=== PATIENT | male | born 1930 | race Caucasian/White ===

== ENCOUNTER 2020-05-13 10:27 | Inpatient (IN) | payer MEDICARE, OTHER ==
[2020-05-13] MEDS ORDERED: methylPREDNISolone Sod Succ/PF 125 MG/2 ML VIAL ONE (10:43)
[2020-05-13] MEDS ORDERED: Cefepime 2 GM VIAL ONE (11:05)
[2020-05-13] MEDS ORDERED: Vancomycin 1 GM/200 ML BAG ONE (11:05)
[2020-05-13 11:13] LABS: Analyzer IN Cardio ER; Base Excess (BEa) -1.2 mEq/L (-2.0 to +3.0); CO2 Tension 32.6 mmHg (35.0-45.0); Calcium, Ionized (arterial) 1.22 mmol/L (1.12-1.30); Carboxyhemoglobin (COHb) 0.3 gm% (0.0-3.0); Hemoglobin (Hb) 12.9 g/dL (14.0-18.0); O2 Tension (PaO2), arterial 96.5 mmHg (> 60.0); Potassium - ABG Lab 3.88 mmol/L (3.70-5.30); pH, Arterial 7.45 (7.35-7.45)
[2020-05-13 11:16] LABS: #Lymphocytes 1.3 thou/uL (1.20-3.40); #Monocytes 1.4 thou/uL (0.11-0.59); #Neutrophils 15.8 thou/uL (1.40-6.50); %Basophils 0.1 % (0.0-1.0); %Eosinophils 0.2 % (0.0-10.0); %Lymphocytes 6.7 % (21.0-51.0); %Monocytes 7.4 % (0.0-10.0); %Neutrophils 85.5 % (42.0-75.0); Hemoglobin 13.6 g/dL (14.0-18.0); Mean Corpuscular HGB CONC 33.6 g/dL (32.0-36.0); Mean Corpuscular Hemoglobin 32.4 pg (27.0-31.0); Mean Corpuscular Volume 96.2 fL (78.0-98.0); Mean Platelet Volume 9.6 fL (7.4-10.4); Platelet Count 134 thou/uL (130-400); RBC Distribution Width 11.9 % (11.5-14.5); White Blood Cell (WBC) Count 18.5 thou/uL (4.8-10.8)
[2020-05-13 11:22] LABS: Puncture Site RRA
[2020-05-13 11:25] LABS: ALT (SGPT) 47 U/L (8-55); AST (SGOT) 49 U/L (5-34); Albumin 3.6 g/dL (3.4-4.8); Alkaline Phosphatase 77 U/L (40-110); Anion Gap 17 mmol/L (10-20); BUN (Urea Nitrogen) 23 mg/dL (8.4-25.7); Bilirubin, Total 1.1 mg/dL (0.2-1.2); CK (CPK) 181 U/L (30-200); Calc. Creatinine Clearance 0 mL/min (70-130); Calcium 9.5 mg/dL (7.8-10.44); Carbon Dioxide 24 mmol/L (23-31); Chloride 102 mmol/L (98-107); Estimated GFR-MDRD 45; Globulin 3.1 g/dL (2.4-3.5); Glucose 157 mg/dL (83-110); Protein, Total 6.7 g/dL (5.8-8.1); Sodium 139 mmol/L (136-145)
[2020-05-13 11:26] LABS: Magnesium 2.3 mg/dL (1.6-2.6)
[2020-05-13] MEDS ORDERED: Albuterol 200 PUFF (6.7GM INHALER) ONE (11:30)
--- NOTE | 2020-05-13 11:51 | RAD ---
XR Chest 1 View Portable History: Chest pain Comparison: Chest radiograph 2014 Findings: Heart size is enlarged. Moderate effusion. Small left effusion. Patient is rotated to the r ight. Dense calcifications of the aorta is mildly tortuous. Mild distention of the vascular pedicle. Moderate pulmonary venous congestion and mild edema. Impression: Moderate decompensated congestive heart failure.
[2020-05-13 12:12] LABS: SARS-CoV-2 NAA Rapid Test Not Detected (NotDetected)
[2020-05-13 12:44] LABS: CKMB 18.6 ng/mL (0-6.6)
[2020-05-13] MEDS ORDERED: Diltiazem 125 MG in Sodium Chloride 0.9% 100 ML IVPB SCH ×2 (13:00→15:00)
[2020-05-13] MEDS ORDERED: Aspirin 300 MG Suppository ONE (13:37)
[2020-05-13 13:38] LABS: Bacteria/HPF None Seen HPF (None Seen); Bilirubin Negative (Negative); Blood, Urine Negative (Negative); Clarity Turbid (Clear); Glucose, Urine (Dipstick) Normal (Negative); Ketone, Urine Trace mg/dL (Negative); Leukocyte 250 Leu/uL (Negative); Nitrite Negative (Negative); Protein, Urine (Dipstick) 50 mg/dL (Neg-Trace); RBC/HPF 0-3 HPF (0-3); Specific Gravity, Urine 1.022 (1.002-1.036); Squamous Epithelial 0-3 HPF (0-3); Urobilinogen Normal mg/dL (Less than 2); WBC/HPF 21-50 HPF (0-3); pH, Urine 5.5 (5.0-9.0)
[2020-05-13] MEDS ORDERED: Enoxaparin Sodium 60 MG/0.6 ML SYRINGE ONE (13:41)
[2020-05-13] MEDS ORDERED: Enoxaparin Sodium 30 MG/0.3 ML SYRINGE ONE (13:41)
[2020-05-13 13:54] LABS: Lactic Acid 2.3 mmol/L (0.5-2.2)
[2020-05-13] MEDS ORDERED: Senokot S 8.6-50 MG TAB PO PRN (14:38)
[2020-05-13] MEDS ORDERED: Acetaminophen 325 MG TAB PO PRN (14:38)
[2020-05-13] MEDS ORDERED: Piperacillin/Tazobactam 3.375 GM in Sodium Chloride 0.9% 100 ML IVPB SCH (15:00)
[2020-05-13 15:53] LABS: Critical Call Chem Troponin I RESULT DECREASING
--- NOTE | 2020-05-13 15:54 | HP ---
CHIEF COMPLAINT: Hypoxia and sepsis. HISTORY OF PRESENT ILLNESS: An 89-year-old male with a history of hypertension, hyperlipidemia, and severe coronary artery disease, CABG roughly 7 years ago, presented with shortness of breath, altered mentation. During initial evaluation, he had shallow respiration and atrial fibrillation with RVR. EKG consistent with [address] depression, no particular anatomic pattern in terms of leads. It is diffusive in lead II, III, V1 and V2. Initial blood pressure 132/73, pulse of 150. Due to his altered mentation as well as tachypnea with a respiratory rate of 44, he was placed on BiPAP. He is getting better. He is also getting Cardizem drip. His initial troponin was 1.94 with a CK-MB of 18.6 and BNP of 874. Dr. Doty, Cardiology has been consulted by ER physician. They do not feel this case requires urgent cath. Wants to address the acute medical issue of sepsis and his hemodynamically instability with atrial fibrillation as well as leukocytosis. The patient is currently on BiPAP. No family member at bedside. Information is gathered from the ER physician as well as review of the old records. REVIEW OF SYSTEMS: Not obtainable. PAST MEDICAL HISTORY: Hyperlipidemia, hypertension, coronary artery disease. PAST SURGICAL HISTORY: 3 Vessel CABG, cholecystectomy. SOCIAL HISTORY: He drinks less than 5 drinks per day. No alcohol use. No smoking history. FAMILY HISTORY: Noncontributory. MEDICATIONS from old chart: 1. Lipitor 80 mg daily. 2. Aspirin 81 mg daily. 3. Metoprolol succinate 25 mg daily. PHYSICAL EXAMINATION: VITAL SIGNS: His blood pressure 122/67, pulse 130. He is on BiPAP currently. He is afebrile. His respiratory rate seems to be improving currently. Sats 97%. His respiratory rate currently 27 with initial level of 44, now pulse is 67. Currently, his blood pressure with latest reading is 97/52. CARDIOVASCULAR: He has irregular rhythm. Regular rate. LUNGS: He has crackles with anterior auscultation on the upper lung zones. Aeration not appreciated in the lower lung zones. ABDOMEN: Soft, nontender, nondistended. EXTREMITIES: He has a trace pitting edema. NEUROLOGIC: Not assessed. LABORATORY DATA: Troponin 1.9, CK-MB 18. BNP 874. Creatinine 1.46. Lactic acid 2.7, AST 49. Rest of the CMP panel in the normal range. White count 18.5, hemoglobin 13.6. COVID negative. UA shows signs of infection. Chest x-ray reviewed by me. There is moderate decompensated CHF. EKG interpreted by me and it is irregular rhythm, rate of 130 beats per minute. IMPRESSION AND PLAN: This is an 89-year-old male with history of hypertension, hyperlipidemia, presenting with the followin. Sepsis secondary to urinary tract infection as well as acute respiratory failure. Acute respiratory failure, possibly due to decompensated congestive heart failure. 2. History of coronary artery disease, status post coronary artery bypass grafting. 3. Metabolic encephalopathy secondary to sepsis. 4. [id number]-[id number] myocardial infarction. 5. Leukocytosis. 6. The patient hemodynamically currently stable. He will be admitted in the IMCU. Continue with cardiopulmonary supportive measures. Cardiology will be on board. Continue with Cardizem drip and since his creatinine is 1.46, he may need heparin ACS protocol until his sepsis is resolved. [off note, cardiology ok with lovenox ]. Trend the troponin. 2D echo. Lasix IV diuresis. Follow in and outputs and weights When he is able, less than 2 gm sodium diet. 7. We will follow up with blood and urine cultures. Empiric antibiotic with Zosyn for now given the urinary tract infection. 8. Metabolic encephalopathy. Hopefully, it will resolve once the acute medical conditions get better. 9. Deep vein thrombosis prophylaxis. He will be on lovenox bid. 10. GI prophylaxis with Protonix. 11. Full code. Job ID: [id number] [facility]
[2020-05-13 16:34] LABS: CKMB 16.6 ng/mL (0-6.6); Critical Call CKMB RESULT DECREASING
[2020-05-13 16:45] VITALS: BMI 27.5
[2020-05-13] MEDS: Piperacillin/Tazobactam 3.375 GM in Sodium Chloride 0.9% 100 ML IVPB SCH (18:19)
[2020-05-13] MEDS ORDERED: Furosemide 20 MG/2 ML VIAL SLOW IVP SCH (18:45)
[2020-05-13] MEDS: Latanoprost 0.005% Ophth Soln 2.5 ml Bottle EA EYE SCH (20:44)
[2020-05-13] MEDS: Atorvastatin Calcium 40 MG TAB PO SCH (20:44)
[2020-05-13] MEDS: Metoprolol Tartrate 25 MG TAB PO SCH (20:45)
[2020-05-13] MEDS ORDERED: Enoxaparin Sodium 80 MG/0.8 ML SYRINGE SC SCH (21:00)
[2020-05-13 21:37] LABS: Critical Call Chem Troponin I RESULT DECREASING
[2020-05-14] MEDS: Piperacillin/Tazobactam 3.375 GM in Sodium Chloride 0.9% 100 ML IVPB SCH ×3 (02:15→17:59)
[2020-05-14 04:02] LABS: Anion Gap 19 mmol/L (10-20); BUN (Urea Nitrogen) 33 mg/dL (8.4-25.7); Calc. Creatinine Clearance 40 mL/min (70-130); Carbon Dioxide 20 mmol/L (23-31); Cardiac Risk 4.3 (Less than 4.5); Chloride 103 mmol/L (98-107); Cholesterol 124 mg/dl (< 200 Desired); Estimated GFR-MDRD 42; Glucose 222 mg/dL (83-110); HDL Cholesterol 29 mg/dL (>60 Neg Risk); LDL Cholesterol, Calculated 68 mg/dL; Potassium 4.3 mmol/L (3.5-5.1); Sodium 138 mmol/L (136-145); Triglycerides 136 mg/dL (Less than 150)
[2020-05-14 04:03] LABS: Hemoglobin A1c 5.5 % (4.0-6.0)
[2020-05-14 04:15] LABS: Band 11 % (5-11); Crenated RBC SLIGHT = 1-5 cells (100X) (None Seen); Hemoglobin 13.1 g/dL (14.0-18.0); Lymphocytes 2 % (21-51); MDiff Complete? YES; Mean Corpuscular HGB CONC 32.2 g/dL (32.0-36.0); Mean Corpuscular Hemoglobin 31.1 pg (27.0-31.0); Mean Corpuscular Volume 96.4 fL (78.0-98.0); Mean Platelet Volume 10.4 fL (7.4-10.4); Monocytes 4 % (0-10); Platelet Count 144 thou/uL (130-400); Platelet Morphology Comment Appears Adequate; Polychromasia SLIGHT = 2-3 cells (100X) (0-2/hpf); Red Blood Cell (RBC) Count 4.23 mill/uL (4.70-6.10); White Blood Cell (WBC) Count 23.1 thou/uL (4.8-10.8)
[2020-05-14] MEDS: Furosemide 20 MG/2 ML VIAL SLOW IVP SCH ×2 (05:14→14:49)
[2020-05-14] MEDS ORDERED: Diltiazem 125 MG in Sodium Chloride 0.9% 100 ML IVPB SCH (08:56)
[2020-05-14] MEDS: Calcium Carbonate 600 MG + Vit D TAB PO SCH (09:33)
[2020-05-14] MEDS: Cholecalciferol 1,000 UNITS (25 MCG) TAB PO SCH (09:33)
[2020-05-14] MEDS: Metoprolol Tartrate 25 MG TAB PO SCH ×2 (09:34→20:49)
[2020-05-14] MEDS: Aspirin Chewable 81 MG TAB PO SCH (09:34)
[2020-05-14] MEDS: Pantoprazole 40 MG VIAL IVP SCH (09:36)
--- NOTE | 2020-05-14 11:35 | CON ---
DATE OF CONSULTATION: 05/14/2020 REASON FOR CONSULTATION: Atrial fibrillation with a rapid ventricular response, non ST elevation myocardial infarction. PRIMARY CRITICAL CARE REGISTERED NURSE: Dr. Johnathon Jang. HISTORY OF PRESENT ILLNESS: Mr. Greene is an 89-year-old gentleman with history of bypass surgery on 2 different occasions, admitted to the hospital with possible sepsis and increased troponin levels with atrial fibrillation with a rapid rate. The patient was brought to the hospital apparently short of breath, was found to be hypoxemic and possibly septic. He also had atrial fibrillation with a rapid rate. He started on a Cardizem drip, now he is in sinus tachycardia. Initially was on BiPAP, now he is off BiPAP. REVIEW OF SYSTEMS: Not obtainable. The patient is confused and disoriented. PAST MEDICAL HISTORY: The patient has had bypass surgery on 2 different occasions. The most recent was 2012, it was a redo coronary bypass grafting. He also had bypass surgery in 1993. The patient had initially undergone bypass surgery and apparently PTCA in 1993. Details of the bypass do not appear to be available in the chart. MEDICATIONS: 1. Currently here, he is on intravenous Cardizem . 2. He was on aspirin. 3. Atorvastatin. 4. Niacin. 5. Metoprolol. 6. Furosemide. 7. Magnesium. SOCIAL HISTORY: Unknown at the present time. Denies smoking. PHYSICAL EXAMINATION: GENERAL: This is a pleasant elderly gentleman. VITAL SIGNS: Blood pressure 110/50, pulse is now sinus, heart rate is 100, sinus with PACs. NECK: Neck veins are normal. Carotid normal upstrokes. LUNGS: Clear anteriorly, laterally. CARDIAC: Normal S1, normal S2, but he is tachycardic. ABDOMEN: Soft and nontender. EXTREMITIES: Warm, dry. No clubbing or cyanosis. There is no edema. PERTINENT LABORATORY DATA: WBC is 23.1. Troponin level 1.938 and followup 1.396. Creatinine 1.55, GFR estimated 42, but in view of his age that is unlikely to be that high. IMAGING DATA: EKG initially showed atrial fibrillation with a rapid rate, now sinus tachycardia. ASSESSMENT: 1. Atrial fibrillation, paroxysmal. 2. He appears to have chronic obstructive pulmonary disease. 3. Brain natriuretic peptide 874, likely to be diastolic heart failure, [id number]. 4. Renal failure stage 4, although I suspect renal failure is worse than his estimated GFR. PLAN: 1. Continue Lovenox at a reduced dose. 2. He is getting antibiotics. 3. Intravenous Cardizem. 4. Echocardiogram will be ordered. 5. Currently on diuretics, not making much urine. 6. X-ray really does not look like heart failure. 7. We will continue low-dose Lasix for now. Watch creatinine. Job ID: [id number]
--- NOTE | 2020-05-14 12:40 | CON ---
DATE OF CONSULTATION: 05/14/2020 TIME SPENT: 50 minutes of time; of that time, greater than 50% spent with the patient and/or the patient's unit in the hospital. REASON FOR CONSULTATION: Respiratory failure. HISTORY OF PRESENT ILLNESS: The patient is an 89-year-old male who came in yesterday short of breath. He had some ischemic changes on his EKG. He was also in atrial fibrillation with a rapid ventricular response and elevated BNP. Cardiology has been consulted, but has not seen him yet. He claims no history of lung disease and is a lifelong nonsmoker. PAST MEDICAL HISTORY: 1. Hyperlipidemia. 2. Hypertension. 3. Coronary artery disease. PAST SURGICAL HISTORY: 1. Three-vessel coronary artery bypass grafting surgery. 2. Cholecystectomy. SOCIAL HISTORY: Apparently, he does not smoke or drink alcohol. MEDICATIONS PRIOR TO ADMISSION: 1. Lipitor. 2. Aspirin. 3. Metoprolol. FAMILY MEDICAL HISTORY: Unremarkable. REVIEW OF SYSTEMS: He is blind. Apparently, he has some dementia. PHYSICAL EXAMINATION: VITAL SIGNS: Temperature 97, pulse 93, blood pressure 110/62, and O2 saturation 96%. HEENT: Unremarkable. NECK: No JVD. LUNGS: Coarse breath sounds. CARDIOVASCULAR: S1 and S2. Irregularly irregular and tachycardic. ABDOMEN: Soft and nontender. EXTREMITIES: No clubbing, cyanosis, or edema. GENITOURINARY: Bladder scan showed 500 mL of urine in the bladder. LABORATORY DATA: White blood cell count 23, hematocrit 40, and platelet count 144. A pH 7.45, pCO2 of 32, pO2 of 96 on BiPAP 12/8, FiO2 of 30%. Sodium 138, potassium 4.3, chloride 103, CO2 of 20, BUN 33, creatinine 1.5, and glucose 222. Troponin is 1.4. BNP level was 874. COVID test was negative. A chest x-ray demonstrates cardiomegaly, sternal wires, haziness, indicative of pulmonary edema. ASSESSMENT: 1. Likely, the patient is suffering from cardiogenic pulmonary edema from high-output heart failure. 2. Atrial fibrillation with rapid ventricular response. RECOMMENDATIONS: 1. Control of atrial rate with Cardizem. 2. Diuresis. 3. Place a Morin as he has not made any urine, but has about 500 mL of urine in his bladder by bladder scan. 4. Continue BiPAP as needed. Job ID: [id number]
[2020-05-14] MEDS ORDERED: Furosemide 40 MG/4 ML VIAL SLOW IVP SCH (18:15)
--- NOTE | 2020-05-14 18:16 | PDOC.HOSPP ---
- Subjective Encounter Date: 05/14/20 Encounter Time: 18:15 Subjective: The patient states his SOB has improved. His RR is still 30 however. Per nursing, he had no urine output. Bladder scan at 12:00 showed 400 cc. Holman was placed by nursing Lasix given at 15:00, patient has put out only 150 cc since then - Objective Vital Signs & Weight: Vital Signs (12 hours) Temp Pulse Ox 05/14/20 15:34 97.6 F 05/14/20 12:00 97.6 F 96 05/14/20 07:50 100 05/14/20 07:23 97.0 F L Weight Weight 195 lb 3.2 oz Most Recent Monitor Data Heart Rate from ECG 97 NIBP 136/49 NIBP BP-Mean 78 Respiration from ECG 31 SpO2 93 I&O: 05/13/20 05/14/20 05/15/20 06:59 06:59 06:59 Intake Total 273 550 Output Total 0 600 Balance 273 -50 Result Diagrams: 05/14/20 03:22 05/14/20 03:22 Hospitalist ROS - Review of Systems Constitutional: denies: fever, chills - Medication Medications: Active Medications Generic Name Dose Route Start Last Admin Trade Name Freq PRN Reason Stop Dose Admin Aspirin 81 mg 05/14/20 09:00 05/14/20 09:34 Aspirin Chewable PO 81 mg DAILY ADRIANA Administration Atorvastatin Calcium 40 mg 05/13/20 21:00 05/13/20 20:44 Lipitor PO Not Given HS ADRIANA Calcium/Vitamin D 2 tab 05/14/20 09:00 05/14/20 09:33 Caltrate 600 + Vit D PO 2 tab DAILY ADRIANA Administration Cholecalciferol 5,000 units 05/14/20 09:00 05/14/20 09:33 Vitamin D3 PO 5,000 units DAILY ADRIANA Administration Furosemide 20 mg 05/14/20 06:00 05/14/20 14:49 Lasix SLOW IVP 20 mg 0600,1400 ADRIANA Administration Piperacillin Sod/Tazobactam 100 mls @ 200 mls/hr 05/13/20 18:00 05/14/20 17: 59 Sod 3.375 gm/ Sodium Chloride IVPB 100 mls 0200,1000,1800 ADRIANA Administration Latanoprost 1 drop 05/13/20 21:00 09/11/20 20:44 Xalatan 0.005% Ophth Soln EA EYE Not Given HS ADRIANA Memantine 10 mg 05/13/20 21:00 05/14/20 09:34 Namenda PO 10 mg BID ADRIANA Administration Metoprolol Tartrate 25 mg 05/13/20 21:00 05/14/20 09:34 Lopressor PO 25 mg BID ADRIANA Administration Pantoprazole Sodium 40 mg 05/14/20 09:00 05/14/20 09:36 Protonix IVP 40 mg DAILY ADRIANA Administration - Exam General Appearance: NAD, awake alert Eye: PERRL, anicteric sclera ENT: normocephalic atraumatic, no oropharyngeal lesions Neck: no JVD Heart: RRR, no murmur, no gallops, no rubs Respiratory: CTAB, no rales, no ronchi Respiratory - other findings: left upper lobe wheeze. Mild accessory muscle use Gastrointestinal: soft, non-tender, non-distended Extremities: no cyanosis, no clubbing, no edema Skin: normal turgor, no lesions, no rashes Neurological: cranial nerve grossly intact, normal sensation to touch, no focal deficits, no new deficit Musculoskeletal: normal tone, normal strength, no muscle wasting Psychiatric: normal affect, normal behavior, A&O x 3 Hosp A/P - Plan Consults: Palliative Care Chest X ray 05/13: moderate pulmonary edema This is an 89 year old male who presented with shortness of breath, found to be in afib with RVR Acute hypoxic respiratory failure - possibly from decompensated diastolic heart failure vs pneumonia - required BIPAP earlier - ECHO shows normal EF. He is on lasix 20 mg IV bid, will increase to 40 mg. Repeat chest X ray today - continue IV zosyn, trial of one dose of vancomycin Afib - cardizem drip has been weaned down from 6 to 4 - cardiology is following SYMONE - creatinine worsened to 1.55. Possibly from urine retention vs cardiorenal - holman inserted. Urine culture is pending Leukocytosis - WBC trending up to 23. Blood and urine cultures negative. - on IV zosyn, will give one dose of vancomycin but may just be reactive from CHF Elevated troponin - possibly demand ischemia. Cardiology following, no akinesis on ECHO CAD s/p CABG - continue aspirin and statin Anemia - Hb 13.1, stable, will monitor
--- NOTE | 2020-05-14 18:55 | RAD ---
Exam: Chest one view HISTORY:Evaluate for pulmonary edema. Comparison: 05/13/2020 FINDINGS: Cardiac silhouette:Cardiomegaly. There are sternotomy wires. Aorta: Elongation and atherosclerosis Pulmonary vessels: Normal Costophrenic angles: Clear LUNGS: Stable lung parenchymal opacities. Pneumothorax: None Osseous abnormalities: None IMPRESSION: Stable congestive heart failure.
[2020-05-14] MEDS: Vancomycin 1 GM in Premix Bag 1 BAG IVPB SCH ×2 (20:48→20:55)
[2020-05-14] MEDS: Atorvastatin Calcium 40 MG TAB PO SCH (20:49)
[2020-05-14] MEDS: Enoxaparin Sodium 60 MG/0.6 ML SYRINGE SC SCH (20:50)
[2020-05-14] MEDS ORDERED: Digoxin 0.5 MG/2 ML AMP SLOW IVP SCH (22:00)
[2020-05-14] MEDS ORDERED: Lorazepam 2 MG/ML VIAL SLOW IVP SCH (22:00)
[2020-05-14] MEDS: Latanoprost 0.005% Ophth Soln 2.5 ml Bottle EA EYE SCH (22:01)
[2020-05-15] MEDS: Piperacillin/Tazobactam 3.375 GM in Sodium Chloride 0.9% 100 ML IVPB SCH ×3 (02:24→18:09)
[2020-05-15 04:02] LABS: Hemoglobin 12.6 g/dL (14.0-18.0); Mean Corpuscular HGB CONC 33.2 g/dL (32.0-36.0); Mean Corpuscular Hemoglobin 32.4 pg (27.0-31.0); Mean Corpuscular Volume 97.6 fL (78.0-98.0); Mean Platelet Volume 9.9 fL (7.4-10.4); Platelet Count 123 thou/uL (130-400); RBC Distribution Width 12.2 % (11.5-14.5); Red Blood Cell (RBC) Count 3.89 mill/uL (4.70-6.10); White Blood Cell (WBC) Count 25.6 thou/uL (4.8-10.8)
[2020-05-15 04:19] LABS: Iron 96 ug/dL (65-175); Iron Binding Capacity, Total 183 mcg/dL (261-462)
[2020-05-15 04:21] LABS: Anion Gap 17 mmol/L (10-20); BUN (Urea Nitrogen) 49 mg/dL (8.4-25.7); Calc. Creatinine Clearance 35 mL/min (70-130); Calcium 9.1 mg/dL (7.8-10.44); Carbon Dioxide 21 mmol/L (23-31); Chloride 108 mmol/L (98-107); Estimated GFR-MDRD 35; Glucose 176 mg/dL (83-110); Iron 95 ug/dL (65-175); Iron Binding Capacity, Total 184 mcg/dL (261-462); Potassium 4.3 mmol/L (3.5-5.1); Sodium 142 mmol/L (136-145)
[2020-05-15 04:39] LABS: Thyroid Stimulating Hormone 0.6463 uIU/mL (0.35-4.94)
[2020-05-15 05:00] LABS: Ferritin 589.14 ng/mL (22-322)
[2020-05-15] MEDS: Furosemide 20 MG/2 ML VIAL SLOW IVP SCH (05:53)
[2020-05-15] MEDS: Aspirin Chewable 81 MG TAB PO SCH (09:24)
[2020-05-15] MEDS: Calcium Carbonate 600 MG + Vit D TAB PO SCH (09:24)
[2020-05-15] MEDS: Cholecalciferol 1,000 UNITS (25 MCG) TAB PO SCH (09:25)
[2020-05-15] MEDS: Enoxaparin Sodium 60 MG/0.6 ML SYRINGE SC SCH ×2 (09:25→20:39)
[2020-05-15] MEDS: Metoprolol Tartrate 25 MG TAB PO SCH ×2 (09:25→20:39)
[2020-05-15] MEDS: Pantoprazole 40 MG VIAL IVP SCH (09:26)
[2020-05-15] MEDS ORDERED: Albuterol Sulfate 1.25 MG/3 ML NEB NEB PRN (09:38)
--- NOTE | 2020-05-15 09:42 | PDOC.HOSPP ---
- Subjective Encounter Date: 05/15/20 Encounter Time: 09:41 Subjective: Patient states he is doing better today. He states he has ambulated to the bathroom. Noted to have inspiratory stridor on exam . P atient denies excessive cough he still has poor urine output per nursing . Cardizem drip has been weaned down to 3 an hour - Objective Vital Signs & Weight: Vital Signs (12 hours) Temp Pulse Resp Pulse Ox 05/15/20 07:55 94 L 05/15/20 07:08 96.4 F L 05/15/20 03:29 98.8 F 05/15/20 02:35 98 24 H 98 05/14/20 23:33 97.0 F L 05/14/20 22:09 120 H 30 H 94 L Weight Weight 190 lb 12.8 oz Most Recent Monitor Data Heart Rate from ECG 95 NIBP 111/39 NIBP BP-Mean 63 Respiration from ECG 27 SpO2 95 I&O: 05/14/20 05/15/20 05/16/20 06:59 06:59 06:59 Intake Total 273 732 Output Total 0 925 Balance 273 -193 Result Diagrams: 05/15/20 03:48 05/15/20 03:48 Hospitalist ROS - Review of Systems Constitutional: denies: fever, chills - Medication Medications: Active Medications Generic Name Dose Route Start Last Admin Trade Name Adrianna PRN Reason Stop Dose Admin Aspirin 81 mg 05/14/20 09:00 05/15/20 09:24 Aspirin Chewable PO 81 mg DAILY ADRIANA Administration Atorvastatin Calcium 40 mg 05/13/20 21:00 05/14/20 20:49 Lipitor PO 40 mg HS ADRIANA Administration Calcium/Vitamin D 2 tab 05/14/20 09:00 05/15/20 09:24 Caltrate 600 + Vit D PO 2 tab DAILY ADRIANA Administration Cholecalciferol 5,000 units 05/14/20 09:00 05/15/20 09:25 Vitamin D3 PO 5,000 units DAILY ADRIANA Administration Enoxaparin Sodium 60 mg 05/14/20 21:00 05/15/20 09:25 Lovenox SC 60 mg 0900,2100 ADRIANA Administration Piperacillin Sod/Tazobactam 100 mls @ 200 mls/hr 05/13/20 18:00 05/15/20 09: 26 Sod 3.375 gm/ Sodium Chloride IVPB 100 mls 0200,1000,1800 ADRIANA Administration Diltiazem HCl 125 mg/ Sodium 125 mls @ 6 mls/hr 05/14/20 08:56 05/15/20 00:16 Chloride IVPB 125 mls INF ADRIANA Administration Protocol 6 MG/HR Latanoprost 1 drop 05/13/20 21:00 05/14/20 22:01 Xalatan 0.005% Ophth Soln EA EYE 1 drop HS ADRIANA Administration Memantine 10 mg 05/13/20 21:00 05/15/20 09:25 Namenda PO 10 mg BID ADRIANA Administration Metoprolol Tartrate 25 mg 05/13/20 21:00 05/15/20 09:25 Lopressor PO 25 mg BID ADRIANA Administration Pantoprazole Sodium 40 mg 05/14/20 09:00 05/15/20 09:26 Protonix IVP 40 mg DAILY ADRIANA Administration - Exam General Appearance: NAD, awake alert Eye: PERRL, anicteric sclera ENT - other findings: inspiratory stridor heard Heart: RRR, no murmur, no gallops, no rubs Respiratory: CTAB, no wheezes, no rales, no ronchi Gastrointestinal: soft, non-tender, non-distended, normal bowel sounds Extremities: no cyanosis, no clubbing, no edema Hosp A/P - Plan Chest X ray 05/13: moderate pulmonary edema Chest X ray 05/15: patchy interstitial infiltrates This is an 89 year old male who presented with shortness of breath, found to be in afib with RVR Acute hypoxic respiratory failure - possibly from decompensated diastolic heart failure vs pneumonia - required BIPAP earlier - ECHO shows normal EF. - repeat chest X ray shows persistent effusions bilaterally. Continue IV lasix 40 mg, BNP > 1000 - WBC up to 25, on IV zosyn, received one dose of IV vancomycin yesterday, will hold further given worsening creatinine - will order IV steroids for stridor and order breathing treatments Afib - on cardizem drip of 3 - cardiology is following SYMONE - creatinine worsened to 1.81. Possibly from urine retention vs cardiorenal - holman inserted. Urine culture showed no growth - continue lasix Leukocytosis - WBC trending up to 25. Blood and urine cultures negative. - on IV zosyn, given IV vancomycin as well. Will continue to monitor, could be reactive Elevated troponin - possibly demand ischemia. Cardiology following, no akinesis on ECHO CAD s/p CABG - continue aspirin and statin Anemia - Hb 12.6, stable, will monitor
[2020-05-15] MEDS ORDERED: methylPREDNISolone Sod Succ/PF 125 MG/2 ML VIAL IVP SCH (09:45)
--- NOTE | 2020-05-15 12:02 | RAD ---
PORTABLE CHEST: HISTORY: Dyspnea. COMPARISON: 05/14/20 FINDINGS: Cardiomegaly with mild vascular congestion. Interstitial congestion, consistent with interstitial hung ma, has a similar appearance to yesterday. Small effusions. Some patchy infiltrative atelectasis in t he right lung base is noted. IMPRESSION: Cardiomegaly with vascular and interstitial congestion. Patchy atelectasis or infiltrate in the right lung base is noted along with small bilateral effusions. POS: AGW
--- NOTE | 2020-05-15 12:05 | ULT ---
RENAL ULTRASOUND: INDICATIONS: Abnormal renal function tests. FINDINGS: The left kidney measures 11 cm in length and the right kidney measures 10.4 cm in length. Both kidneys show mild cortical thickening and mild increased cortical echogenicity. No evidence of h ydronephrosis. No mass lesion seen. Tiny echogenicities within the region of both renal pelves could represent tiny renal calcifications or possibly arterial calcifications. The urinary bladder is contracted with a Morin catheter. IMPRESSION: Mild cortical thickening and mild increased cortical echogenicity. POS: AGW
[2020-05-15] MEDS ORDERED: Furosemide 40 MG/4 ML VIAL SLOW IVP SCH (12:30)
--- NOTE | 2020-05-15 16:08 | PRG ---
DATE OF SERVICE: 05/15/2020 SUBJECTIVE: His BiPAP is off this morning, but he remains somewhat tachypneic. He is more verbal than he was yesterday. OBJECTIVE: VITAL SIGNS: Temperature 96.4, pulse 98, blood pressure 118/56, O2 saturation 98%. HEENT: Unremarkable. NECK: No adenopathy or JVD. LUNGS: Coarse breath sounds. CARDIAC: S1 and S2. Irregularly irregular and tachycardic. ABDOMEN: Soft and nontender. EXTREMITIES: No edema. LABORATORY DATA: White blood cell count 25, hematocrit 37.9, and platelet count 123. Sodium 142, potassium 4.3, chloride 108, CO2 of 21, BUN 49, creatinine 1.8, glucose 176. ASSESSMENT: 1. Advanced age. 2. Atrial fibrillation with rapid ventricular response. 3. Cardiogenic pulmonary edema. 4. Elevated white blood cell count, perhaps indicative of some aspiration. PLAN: 1. Continue the antibiotics. 2. BiPAP intermittently as needed. 3. Diuresis if needed. 4. Trying to avoid intubating this patient as I doubt he would ever come off mechanical ventilation if it came to that. Job ID: [id number]
[2020-05-15] MEDS: Latanoprost 0.005% Ophth Soln 2.5 ml Bottle EA EYE SCH (20:38)
[2020-05-15] MEDS: Furosemide 40 MG/4 ML VIAL SLOW IVP SCH (20:38)
[2020-05-15] MEDS: Atorvastatin Calcium 40 MG TAB PO SCH (20:38)
[2020-05-16] MEDS: Piperacillin/Tazobactam 3.375 GM in Sodium Chloride 0.9% 100 ML IVPB SCH ×3 (01:47→17:48)
[2020-05-16 04:10] LABS: Mean Corpuscular HGB CONC 32.4 g/dL (32.0-36.0); Mean Corpuscular Hemoglobin 31.6 pg (27.0-31.0); Mean Corpuscular Volume 97.5 fL (78.0-98.0); Mean Platelet Volume 10.9 fL (7.4-10.4); Platelet Count 133 thou/uL (130-400); RBC Distribution Width 12.2 % (11.5-14.5); White Blood Cell (WBC) Count 16.6 thou/uL (4.8-10.8)
[2020-05-16 04:34] LABS: ALT (SGPT) 47 U/L (8-55); AST (SGOT) 42 U/L (5-34); Albumin 3.1 g/dL (3.4-4.8); Alkaline Phosphatase 59 U/L (40-110); Anion Gap 17 mmol/L (10-20); BUN (Urea Nitrogen) 56 mg/dL (8.4-25.7); Bilirubin, Total 0.8 mg/dL (0.2-1.2); Calc. Creatinine Clearance 35 mL/min (70-130); Calcium 9.2 mg/dL (7.8-10.44); Carbon Dioxide 25 mmol/L (23-31); Chloride 109 mmol/L (98-107); Estimated GFR-MDRD 36; Globulin 2.6 g/dL (2.4-3.5); Glucose 148 mg/dL (83-110); Potassium 3.7 mmol/L (3.5-5.1); Protein, Total 5.7 g/dL (5.8-8.1); Sodium 147 mmol/L (136-145)
--- NOTE | 2020-05-16 08:28 | RAD ---
CHEST 1 VIEW PORTABLE: HISTORY: Followup pulmonary edema. COMPARISON: Again noted are some bilateral vascular congestive changes with patchy interstitial and alveolar pare nchymal changes throughout both lungs. Monitor leads overlie the chest. Postop midline sternotomy. Slight costophrenic angle blunting bilaterally. IMPRESSION: Overall stable exam with increased interstitial changes bilaterally. POS: OFF
--- NOTE | 2020-05-16 08:49 | PDOC.HOSPP ---
- Subjective Encounter Date: 05/16/20 Encounter Time: 10:15 Subjective: THe patient states he still feels sick. Still has inspiratory stridor but improving He has intermittent episodes where he coughs up a lot of phlegm - Objective Vital Signs & Weight: Vital Signs (12 hours) Temp Pulse Resp Pulse Ox 05/16/20 07:31 97.3 F L 05/16/20 03:55 97.0 F L 05/16/20 00:26 87 20 100 05/16/20 00:19 97.8 F 05/15/20 22:52 80 18 100 Weight Weight 187 lb 14.4 oz Most Recent Monitor Data Heart Rate from ECG 82 NIBP 100/67 NIBP BP-Mean 78 Respiration from ECG 19 SpO2 99 I&O: 05/15/20 05/16/20 05/17/20 06:59 06:59 06:59 Intake Total 732 690 Output Total 925 1325 Balance -193 -635 Result Diagrams: 05/16/20 03:23 05/16/20 03:23 Hospitalist ROS - Review of Systems Constitutional: denies: fever, chills - Medication Medications: Active Medications Generic Name Dose Route Start Last Admin Trade Name Freq PRN Reason Stop Dose Admin Aspirin 81 mg 05/14/20 09:00 05/15/20 09:24 Aspirin Chewable PO 81 mg DAILY ADRIANA Administration Atorvastatin Calcium 40 mg 05/13/20 21:00 05/15/20 20:38 Lipitor PO 40 mg HS ADRIANA Administration Calcium/Vitamin D 2 tab 05/14/20 09:00 05/15/20 09:24 Caltrate 600 + Vit D PO 2 tab DAILY ADRIANA Administration Cholecalciferol 5,000 units 05/14/20 09:00 05/15/20 09:25 Vitamin D3 PO 5,000 units DAILY ADRIANA Administration Enoxaparin Sodium 60 mg 05/14/20 21:00 05/15/20 20:39 Lovenox SC 60 mg 0900,2100 ADRIANA Administration Furosemide 40 mg 05/15/20 21:00 05/15/20 20:38 Lasix SLOW IVP 40 mg BID ADRIANA Administration Piperacillin Sod/Tazobactam 100 mls @ 200 mls/hr 05/13/20 18:00 05/16/20 01: 47 Sod 3.375 gm/ Sodium Chloride IVPB 100 mls 0200,1000,1800 ADRIANA Administration Latanoprost 1 drop 05/13/20 21:00 05/15/20 20:38 Xalatan 0.005% Ophth Soln EA EYE 1 drop HS ADRIANA Administration Memantine 10 mg 05/13/20 21:00 05/15/20 20:38 Namenda PO 10 mg BID ADRIANA Administration Metoprolol Tartrate 12.5 mg 05/15/20 21:00 05/15/20 20:39 Lopressor PO 12.5 mg BID ADRIANA Administration Pantoprazole Sodium 40 mg 05/14/20 09:00 05/15/20 09:26 Protonix IVP 40 mg DAILY ADRIANA Administration - Exam General Appearance: NAD, awake alert Eye: PERRL, anicteric sclera ENT: normocephalic atraumatic, no oropharyngeal lesions ENT - other findings: mild inspiratory stridor heard Neck: no JVD Heart: RRR, no murmur, no gallops, no rubs Respiratory - other findings: diminished breath sounds, scattered wheezing Gastrointestinal: soft, non-tender, non-distended, normal bowel sounds, no hepatomegaly Extremities: no cyanosis, no clubbing, no edema Skin: normal turgor, no lesions, no rashes Hosp A/P - Plan Chest X ray 05/13: moderate pulmonary edema Chest X ray 05/15: patchy interstitial infiltrates This is an 89 year old male who presented with shortness of breath, found to be in afib with RVR Acute hypoxic respiratory failure - possibly from decompensated diastolic heart failure vs pneumonia - on BIPAP while sleeping. ECHO shows normal EF. - repeat chest X ray shows worsening effusions bilaterally, but creatinine has improved and BNP has improved some - WBC down to 16. - continue IV zosyn. Gave vancomycin on 05/14, will give another dose due to worsening chest Xray today; left side appears worst in particular - reorder IV solumedrol and continue nebulizer treatments given inspiratory stridor Afib - he is off cardizem drip SYMONE - creatinine improved slightly to 1.77 - continue lasix Hypernatremia - sodium up to 147, maybe from lasix? Will monitor Leukocytosis - improving, continue antibiotics. BLood and urine cultures negative Elevated troponin - possibly demand ischemia. Cardiology following, no akinesis on ECHO CAD s/p CABG - continue aspirin and statin Anemia - Hb 12.6, stable, will monitor
[2020-05-16] MEDS ORDERED: methylPREDNISolone Sod Succ 40 MG VIAL IVP SCH (09:00)
[2020-05-16] MEDS: Lorazepam 0.5 MG TAB PO PRN ×2 (09:38→20:33)
[2020-05-16] MEDS: Calcium Carbonate 600 MG + Vit D TAB PO SCH (09:38)
[2020-05-16] MEDS: Aspirin Chewable 81 MG TAB PO SCH (09:38)
[2020-05-16] MEDS: Metoprolol Tartrate 25 MG TAB PO SCH ×2 (09:39→20:33)
[2020-05-16] MEDS: Pantoprazole 40 MG VIAL IVP SCH (09:39)
[2020-05-16] MEDS: Enoxaparin Sodium 60 MG/0.6 ML SYRINGE SC SCH ×2 (09:39→20:34)
[2020-05-16] MEDS: Furosemide 40 MG/4 ML VIAL SLOW IVP SCH ×2 (09:39→20:32)
[2020-05-16] MEDS: Cholecalciferol 1,000 UNITS (25 MCG) TAB PO SCH (09:39)
[2020-05-16] MEDS ORDERED: Vancomycin 1 GM in Premix Bag 1 BAG IVPB SCH (11:00)
--- NOTE | 2020-05-16 11:09 | PRG ---
DATE OF SERVICE: 05/16/2020 SUBJECTIVE: Mr. Greene remains in the IMCU on BiPAP intermittently. OBJECTIVE: VITAL SIGNS: His temperature is 97.3, pulse 81, blood pressure 93/53, and O2 saturation 96%. HEENT: Unremarkable. NECK: No adenopathy or JVD. LUNGS: Coarse breath sounds. CARDIAC: S1 and S2. Regular. ABDOMEN: Soft and nontender. EXTREMITIES: Trace edema. IMAGING: His chest x-ray shows much change compared to previous. He may have a little more interstitial edema than what he has had. LABORATORY DATA: White blood cell count 16, hematocrit 37, and platelet count 133. Sodium 147, potassium 3.7, chloride 108, CO2 of 25, BUN 56, creatinine 1.7, and glucose 148. ASSESSMENT: 1. Advanced age. 2. Atrial fibrillation with rapid ventricular response. 3. Cardiogenic pulmonary edema. 4. Question of aspiration. PLAN: 1. He is continuing antibiotics. 2. He is receiving diuretics twice daily. 3. Steroid dose has been tapered. 4. His prognosis is quite poor and family should be counseled in regard to need for DNR. Job ID: [id number]
[2020-05-16] MEDS ORDERED: Vancomycin HCl 1.25 GM in Sodium Chloride 0.9% 250 ML 250 ML IVPB SCH (11:30)
--- NOTE | 2020-05-16 14:22 | PRG ---
DATE OF SERVICE: 05/15/2020 SUBJECTIVE: Mr. Greene intermittently has had BiPAP. The nurse said he intermittently gets very short of breath. He is in sinus rhythm. OBJECTIVE: VITAL SIGNS: Blood pressure 117/55, pulse 80s and sinus. LUNGS: Breath sounds seems distant. Moving airway very well. CARDIAC: Normal S1, normal S2. He has no murmur, rub, or gallop. ABDOMEN: Soft, nontender. EXTREMITIES: Cold. DIAGNOSTIC STUDIES: Chest x-ray read as increased interstitial markings compatible with congestive heart failure. ASSESSMENT: 1. Diastolic heart failure. 2. Paroxysmal atrial fibrillation, in sinus rhythm. PLAN: 1. Stop diltiazem. 2. Continue diuretic. 3. We will reduce beta-bimal. Prognosis guarded. 4. BNP 1113, worse than 2 days ago, probably he has heart failure. Job ID: [id number]
[2020-05-16] MEDS: Atorvastatin Calcium 40 MG TAB PO SCH (20:32)
[2020-05-16] MEDS: Latanoprost 0.005% Ophth Soln 2.5 ml Bottle EA EYE SCH (20:34)
[2020-05-16] MEDS: Lorazepam 2 MG/ML VIAL SLOW IVP PRN (22:53)
[2020-05-17] MEDS: Piperacillin/Tazobactam 3.375 GM in Sodium Chloride 0.9% 100 ML IVPB SCH ×2 (02:17→09:57)
[2020-05-17 04:16] LABS: Mean Corpuscular HGB CONC 32.7 g/dL (32.0-36.0); Mean Corpuscular Hemoglobin 31.6 pg (27.0-31.0); Mean Corpuscular Volume 96.5 fL (78.0-98.0); Mean Platelet Volume 10.6 fL (7.4-10.4); Platelet Count 150 thou/uL (130-400); RBC Distribution Width 12.3 % (11.5-14.5); Red Blood Cell (RBC) Count 3.81 mill/uL (4.70-6.10); White Blood Cell (WBC) Count 20.9 thou/uL (4.8-10.8)
[2020-05-17 04:39] LABS: ALT (SGPT) 56 U/L (8-55); AST (SGOT) 53 U/L (5-34); Albumin 3.3 g/dL (3.4-4.8); Alkaline Phosphatase 57 U/L (40-110); Anion Gap 20 mmol/L (10-20); BUN (Urea Nitrogen) 61 mg/dL (8.4-25.7); Bilirubin, Total 0.9 mg/dL (0.2-1.2); Calc. Creatinine Clearance 35 mL/min (70-130); Calcium 9.3 mg/dL (7.8-10.44); Carbon Dioxide 23 mmol/L (23-31); Chloride 111 mmol/L (98-107); Estimated GFR-MDRD 38; Globulin 2.6 g/dL (2.4-3.5); Glucose 166 mg/dL (83-110); Potassium 3.2 mmol/L (3.5-5.1); Protein, Total 5.9 g/dL (5.8-8.1); Sodium 151 mmol/L (136-145)
[2020-05-17] MEDS: Lorazepam 2 MG/ML VIAL SLOW IVP PRN ×2 (07:04→12:56)
[2020-05-17] MEDS ORDERED: Lorazepam 2 MG/ML VIAL ONE (08:24)
[2020-05-17] MEDS ORDERED: Lorazepam 2 MG/ML VIAL SLOW IVP SCH (08:30)
[2020-05-17] MEDS: Aspirin Chewable 81 MG TAB PO SCH (08:53)
[2020-05-17] MEDS: Calcium Carbonate 600 MG + Vit D TAB PO SCH (08:53)
[2020-05-17] MEDS: Cholecalciferol 1,000 UNITS (25 MCG) TAB PO SCH (08:53)
[2020-05-17] MEDS: Metoprolol Tartrate 25 MG TAB PO SCH (08:53)
[2020-05-17] MEDS: Enoxaparin Sodium 60 MG/0.6 ML SYRINGE SC SCH (09:55)
[2020-05-17] MEDS: Pantoprazole 40 MG VIAL IVP SCH (09:56)
--- NOTE | 2020-05-17 10:13 | RAD ---
CHEST 1 VIEW: Date: 05/17/2020 HISTORY: Shortness of breath. COMPARISON: 05/16/2020. FINDINGS: Progressive bilateral linear and interstitial parenchymal changes, evidence for developing and worsen ing interstitial edema. Postop midline sternotomy. Heart size within normal limits. No significant pl eural effusion. IMPRESSION: Progressive linear and interstitial parenchymal changes bilaterally, evidence for developing and/or w orsening edema or diffuse interstitial pneumonitis. Continue short-term follow-up. POS: OFF
--- NOTE | 2020-05-17 11:14 | PRG ---
DATE OF SERVICE: 05/17/2020 SUBJECTIVE: The patient is doing about the same. He is requiring BiPAP and told that the family is moving towards hospice care. OBJECTIVE: VITAL SIGNS: His temperature is 97.6, pulse 99, blood pressure 89/45, and O2 saturation 96%. HEENT: Unremarkable. NECK: No JVD. LUNGS: Coarse rhonchi. CARDIAC: S1, S2. Regular. ABDOMEN: Soft. EXTREMITIES: No edema. ASSESSMENT: 1. Acute respiratory failure, requiring BiPAP. 2. Advanced age. 3. Atrial fibrillation with rapid ventricular response. 4. Cardiogenic pulmonary edema. 5. Question of aspiration. PLAN: I would fully support this patient moving to a hospice type environment as I do not see that long-term improvement is possible. Pulmonary would be available as needed. Job ID: [id number]
[2020-05-17 11:46] VITALS: TEMP 97
[2020-05-17] MEDS ORDERED: Vancomycin HCl 1.25 GM in Sodium Chloride 0.9% 250 ML 250 ML IVPB SCH ×2 (12:00→13:00)
[2020-05-17 12:37] LABS: Vancomycin, Random 12.7 ug/mL (See Comment)
[2020-05-17 12:43] LABS: Neutrophil 83 % (42-75)
[2020-05-17] MEDS ORDERED: Morphine 4 MG/ML VIAL SLOW IVP PRN (13:46)
[2020-05-17] MEDS ORDERED: Lorazepam 2 MG/ML VIAL SLOW IVP PRN (13:47)
--- NOTE | 2020-05-17 16:25 | PDOC.PALCO ---
Palliative Care Consult - Consult Details Requesting Physician: Dr Croft Reason for Consult: goals of care, family support - Pertinent HPI 89 year old male who was cared for in the private home setting and presented to the emergency room for decline, shortness of breath and altered mental status. Dependent for assist with ADL in home setting prior to hospital admission. Evaluation identified need to admit to IMCU secondary to sepsis, atrial fibrillation, respiratory failure. - Pertinent PMH HDL, HTN, CAD, Dementia - Social History Smoking Status: Unknown if ever smoked Alcohol Use: none Drug Use History: none Living Situation: , with caregiver - Medications MAR Reviewed: Yes - Allergies Allergies/Adverse Reactions: Allergies Allergy/AdvReac Type Severity Reaction Status Date / Time No Known Allergies Allergy Verified 11/20/19 12:21 - Subjective Restless, labored respirations, confused. - ROS Non Response: due to mental status - Objective Vital Signs: Vital Signs - Most Recent Temp Pulse Resp BP Pulse Ox 97.0 F L 96 26 H 99 05/17/20 11:00 05/17/20 10:49 05/17/20 10:49 05/17/20 10:49 Palliative Performance Scale: 20 - Physical Exam Constitutional: encephalitic, ill appearing Respiratory: diminished lung sound, labored respirations Cardiovascular: RRR Gastrointestinal: soft, non-tender, positive bowel sounds Genitourinary: holman catheter Musculoskeletal: no edema, diffuse muscle atrophy Neurology: no focal deficits Deviation from normal: encephalopathic - Problem List (1) Palliative care by specialist Code(s): Z51.5 - ENCOUNTER FOR PALLIATIVE CARE Status: Acute (2) Respiratory failure Code(s): J96.90 - RESPIRATORY FAILURE, UNSP, UNSP W HYPOXIA OR HYPERCAPNIA Status: Acute (3) Declining functional status Code(s): R53.81 - OTHER MALAISE Status: Acute - Plan/Recommendations Plan: Palliative Care has met with family, they have elected to transition to Hospice care and seek comfort for end of life. Emotional support/therapeutic listening offered by Palliative Care. Comfort medications places as patient/family await transition to GIP/Hospice. Hospitalist aware. Please also refer to Palliative Care notes in note section. [50] minutes spent on this encounter with >50% of the time in counseling and coordination of care. Thank you for this very appropriate consult.
--- NOTE | 2020-05-17 20:33 | DIS ---
DATE OF ADMISSION: 05/13/2020 DATE OF DISCHARGE: 05/17/2020 DISCHARGE DIAGNOSES: 1. Acute hypoxic respiratory failure secondary to decompensated diastolic heart failure. 2. Pulmonary edema. 3. Leukocytosis. 4. Possible pneumonia. 5. Hypernatremia. 6. Hypokalemia. 7. Elevated troponin. 8. Acute kidney injury. BRIEF HISTORY OF PRESENT ILLNESS: This is an 89-year-old male with a past medical history of CAD, status post CABG, who presented to the emergency room with altered mental status. He was found to have shallow respiration, atrial fibrillation with RVR. EKG showed [address] depression. He also had a pulse of 115, respiratory rate of 44. He was placed on BiPAP and started on a Cardizem drip. Troponin was 1.94 with a CK-MB of 18.6 and a BNP of 874. The patient had a chest x-ray which showed moderate compensated CHF. He was admitted to the [facility] for BiPAP and started on a Cardizem drip and empiric antibiotics with Zosyn and admitted for further workup. HOSPITAL COURSE: Acute hypoxic respiratory failure secondary to pulmonary edema versus pneumonia: The patient had elevated troponin on admission. His echo showed a normal EF. He was started on IV Zosyn and IV lasix 20 mg IV BID. . Repeat chest x-ray showed no significant improvement and his white blood cell count had increased to 23. He was started on IV vancomycin on 05/14. He had on significant urine output and due to persistent pulmonary edema, his lasix was increased to 40 mg IV Bid and holman catheter was placed. Due to inspiratory stridor, he also was started on IV steroids and BIPAP. His kidney function did improve with lasix, but his respiratory status did not and the patient still required BIPAP and when he was weaned off his inspiratory stridor reoccurred. Pulmonary thought the patient had a poor prognosis. Palliative care was consulted. Family decided to proceed with hospice. The patient will be discharged to inpatient hospice. Atrial fibrillation: The patient was started on a Cardizem drip. He intermittently required this during his hospital course. At the time of discharge, he was mostly in sinus tachycardia and appears to have significant anxiety at times, which is controlled with Ativan. Hypernatremia: Patient's sodium started to get worse after starting the IV diuretics. Diuretics were held on the morning of 05/17, but resumed due to chest x-ray showing persistent pulmonary edema. Now that he is being discharged to hospice, the decision to resume would be at the discretion of hospice physician. He has been unable to eat any food due to the patient persistently requiring BiPAP. Leukocytosis: The patient had a white count of 18.5, which increased to 25 with IV Zosyn. He was given a trial of IV vancomycin and his white count initially improved to 16.6, but then worsened again to 20.9. I am not sure if any more antibiotics would help at this point. Consider discontinuing. Elevated troponin: The patient had troponin of 1.9 which came down to 1.39. Cardiology evaluated the patient, did not recommend a catheterization. His echo showed no wall motion abnormalities. DISCHARGE PHYSICAL EXAMINATION: VITALS: Temperature 97.9, respiratory rate 20 to 30, blood pressure 110 systolic, O2 saturation 94% on BiPAP. CVS: Sinus tachycardia. No murmurs, rubs, or gallops. LUNGS: Inspiratory stridor with mild crackles bilaterally. ABDOMEN: Positive bowel sounds, soft, nontender, nondistended. EXTREMITIES: No significant edema. PERTINENT LABORATORY DATA: CBC 05/17: White count 20.9, hemoglobin 12.0, hematocrit 36.8, platelet count 150. BMP 05/17: Sodium 151, potassium 3.2, chloride 111, BUN 61, creatinine 1.72. Liver function tests: AST 53, ALT 56. Troponin I: 1.943, 1.938, 1.396. CK-MB 05/13: 18.6 and 16.6 and 18.0. BNP: 874 then 1113 and 1019. UA 05/13: Shows turbid urine, trace ketones, 21-50 white blood cells. Covid PCR 05/13: Negative. PERTINENT IMAGING: Renal ultrasound 05/15: Shows mild cortical thickening and mild increased cortical echogenicity. Chest x-ray 05/17: Progressive linear interstitial parenchymal changes bilaterally. Evidence for developing no worsening edema or diffuse interstitial pneumonitis. Echo 05/14: EF 55% to 60%. No MS. No aortic stenosis. Mild aortic insufficiency. DISCHARGE DISPOSITION: The patient will be discharged to inpatient hospice. ACTIVITY: As tolerated. DIET: As tolerated. DISCHARGE INSTRUCTIONS: The patient will be discharged to inpatient hospice for further care. Job ID: [id number] [facility]
== END 2020-05-17 15:13 | disposition hospice, inpatient (51) | DRG 871 ==
LOC: ERS 10:27 → IMCU/EMU 14:54
PROVIDERS: ADMIT Internal Medicine; ATTEND Internal Medicine
PROC: 5A09357 Assistance with Respiratory Ventilation, Less than 24 Consecutive Hours, Continuous Positive Airway Pressure (ICD-10-PCS; principal; 2020-05-13)
PROC: 0T9B70Z Drainage of Bladder with Drainage Device, Via Natural or Artificial Opening (ICD-10-PCS; 2020-05-14)
DX: A41.9 Sepsis, unspecified organism (principal); J96.01 Acute respiratory failure with hypoxia; I50.33 Acute on chronic diastolic (congestive) heart failure; Z66 Do not resuscitate; Z51.5 Encounter for palliative care; Z20.828 Contact with and (suspected) exposure to other viral communicable diseases; J18.9 Pneumonia, unspecified organism; G93.41 Metabolic encephalopathy; I21.4 Non-ST elevation (NSTEMI) myocardial infarction; E87.0 Hyperosmolality and hypernatremia; N18.4 Chronic kidney disease, stage 4 (severe); J44.0 Chronic obstructive pulmonary disease with (acute) lower respiratory infection; N17.9 Acute kidney failure, unspecified; N39.0 Urinary tract infection, site not specified; I13.0 Hypertensive heart and chronic kidney disease with heart failure and stage 1 through stage 4 chronic kidney disease, or unspecified chronic kidney disease; E87.6 Hypokalemia; E78.5 Hyperlipidemia, unspecified; E78.00 Pure hypercholesterolemia, unspecified; I48.0 Paroxysmal atrial fibrillation; I25.10 Atherosclerotic heart disease of native coronary artery without angina pectoris; D63.1 Anemia in chronic kidney disease; R65.20 Severe sepsis without septic shock; F03.90 Unspecified dementia, unspecified severity, without behavioral disturbance, psychotic disturbance, mood disturbance, and anxiety; Z95.1 Presence of aortocoronary bypass graft; Z90.49 Acquired absence of other specified parts of digestive tract; Z79.899 Other long term (current) drug therapy; Z79.82 Long term (current) use of aspirin
CPT/HCPCS: 36415; 51701; 71045; 76770; 80048; 80053; 80061; 80202; 81003; 81015; 82550; 82553; 82607; 82728; 82746; 82805; 83036; 83540; 83550; 83605; 83735; 83880; 84443; 84484; 85025; 85027; 87040; 87086; 93005; 93306; 94640; 94660; 94760; 96365; 96366; 96367; 96372; 96376; C9113; J0692; J1650; J1940; J2060; J2270; J2543; J2920; J2930; J3370; J3490; J7050; J7620; U0002

== ENCOUNTER 2020-05-17 16:11 | Inpatient (IN) | payer OTHER ==
[2020-05-17 16:18] VITALS: BMI 30.1
[2020-05-17] MEDS ORDERED: Atropine Sulfate 1% Ophth Soln 5 ml Bottle PO PRN (17:54)
[2020-05-17] MEDS: Lorazepam 2 MG/ML VIAL SLOW IVP PRN (20:55)
[2020-05-17] MEDS: Morphine 4 MG/ML VIAL SLOW IVP PRN (23:25)
[2020-05-18] MEDS: Lorazepam 2 MG/ML VIAL SLOW IVP PRN ×3 (02:46→23:43)
[2020-05-18] MEDS: Morphine 4 MG/ML VIAL SLOW IVP PRN ×2 (02:57→11:40)
[2020-05-18] MEDS ORDERED: MORPHINE 10 MG/ML SYRINGE SLOW IVP PRN (11:30)
[2020-05-19] MEDS: Morphine 4 MG/ML VIAL SLOW IVP PRN ×2 (03:00→13:12)
[2020-05-19] MEDS: Lorazepam 2 MG/ML VIAL SLOW IVP PRN ×5 (03:33→23:40)
[2020-05-19 20:00] VITALS: BP 97/51; TEMP 98.8
[2020-05-20] MEDS: Morphine 4 MG/ML VIAL SLOW IVP PRN (01:44)
--- NOTE | 2020-05-20 15:07 | DIS ---
DATE OF ADMISSION: 05/17/2020 DATE OF DISCHARGE: 05/20/2020 DATE OF : 05/20/2020. ADMIT DIAGNOSES: 1. Diastolic congestive heart failure, end-stage, with acute exacerbation. 2. Acute respiratory failure. 3. Possible acute myocardial infarction. 4. History of diabetes type 2. 5. Blindness. 6. Hyperlipidemia. 7. Hypertension. 8. Known coronary artery disease. DISCHARGE DIAGNOSES: 1. Diastolic congestive heart failure, end-stage, with acute exacerbation. 2. Acute respiratory failure. 3. Possible acute myocardial infarction. 4. History of diabetes type 2. 5. Blindness. 6. Hyperlipidemia. 7. Hypertension. 8. Known coronary artery disease. HOSPITAL COURSE: The patient was admitted to the GIP service with worsening respiratory function, was on BiPAP as well as supplemental oxygen. The patient was kept comfortable for the time he was in inpatient hospice. Family was involved. He peacefully without incident. The hospice personnel were available to help with transition of the body to the home. All questions and concerns were handled with family. Job ID: [id number]
--- NOTE | 2020-06-22 15:11 | DIS ---
DATE OF ADMISSION: 05/17/2020 DATE OF DISCHARGE: 05/20/2020 DATE OF : 05/20/2020 The patient was admitted to the GIP service after being in the hospital for acute respiratory failure secondary to decompensated diastolic heart failure. Also had other comorbidities of pulmonary edema, leukocytosis, likely pneumonia, hypernatremia, hypokalemia, acute renal injury with associated elevated troponin. On coming to hospice GIP service, the patient was kept comfortable and oxygen was provided for comfort sake, was also on BiPAP. The patient on the uncomfortably. No acute episodes. was uncomplicated, quiet. Family was informed. Hospice personnel were informed and came to the room. Will help in transition disposition of the body. Job ID: [id number]
== END 2020-05-20 10:53 | disposition expired | DRG 951 ==
LOC: IMCU/EMU 16:11 → ONC 05-19 09:51
PROVIDERS: ADMIT Internal Medicine; ATTEND Family Medicine
PROC: 5A09357 Assistance with Respiratory Ventilation, Less than 24 Consecutive Hours, Continuous Positive Airway Pressure (ICD-10-PCS; principal; 2020-05-17)
DX: Z51.5 Encounter for palliative care (principal); J96.01 Acute respiratory failure with hypoxia; I21.4 Non-ST elevation (NSTEMI) myocardial infarction; A41.9 Sepsis, unspecified organism; R65.20 Severe sepsis without septic shock; G93.41 Metabolic encephalopathy; I50.33 Acute on chronic diastolic (congestive) heart failure; J18.9 Pneumonia, unspecified organism; N39.0 Urinary tract infection, site not specified; E87.0 Hyperosmolality and hypernatremia; N17.9 Acute kidney failure, unspecified; Z66 Do not resuscitate; I25.10 Atherosclerotic heart disease of native coronary artery without angina pectoris; E78.5 Hyperlipidemia, unspecified; I48.91 Unspecified atrial fibrillation; I50.84 End stage heart failure; E11.9 Type 2 diabetes mellitus without complications; H54.8 Legal blindness, as defined in USA; I11.0 Hypertensive heart disease with heart failure; E87.6 Hypokalemia; Z95.1 Presence of aortocoronary bypass graft; Z90.49 Acquired absence of other specified parts of digestive tract; Z79.899 Other long term (current) drug therapy; Z79.82 Long term (current) use of aspirin
CPT/HCPCS: J2060; J2270